=== PATIENT | female | born 1935 | race Caucasian/White ===

== ENCOUNTER 2016-10-18 10:00 | Outpatient (RCR) | payer MEDICARE, OTHER | END 2016-10-19 | disposition home or self-care (01) | LOC: PTY 10:00 | DX: I89.0 Lymphedema, not elsewhere classified (principal) | CPT/HCPCS: 97110; 97140; 97163; 97535; G8978; G8979 ==

== ENCOUNTER 2016-11-15 10:51 | Outpatient (RCR) | payer MEDICARE, OTHER | END 2016-11-18 | disposition home or self-care (01) | LOC: PTY 10:51 | DX: I89.0 Lymphedema, not elsewhere classified (principal) | CPT/HCPCS: 97110; 97140; 97535; G8978; G8979 ==

== ENCOUNTER 2016-12-13 10:00 | Outpatient (RCR) | payer MEDICARE, OTHER | END 2016-12-19 | disposition home or self-care (01) | LOC: PTY 10:00 | DX: I89.0 Lymphedema, not elsewhere classified (principal) | CPT/HCPCS: 97140; 97535; G8979; G8980 ==

== ENCOUNTER 2017-07-03 10:45 | Outpatient (RCR) | payer MEDICARE, OTHER | END 2017-07-19 | disposition home or self-care (01) | LOC: PTY 10:45 | DX: I89.0 Lymphedema, not elsewhere classified (principal) | CPT/HCPCS: 97110; 97140; 97162; G8978; G8979 ==

== ENCOUNTER 2017-07-23 09:00 | Outpatient (RCR) | payer MEDICARE, OTHER | END 2017-08-18 | disposition home or self-care (01) | LOC: PTY 09:00 | DX: I89.0 Lymphedema, not elsewhere classified (principal) | CPT/HCPCS: 97110; 97140; G8978; G8979 ==

== ENCOUNTER 2017-12-21 09:50 | Outpatient (RCR) | payer MEDICARE, OTHER | END 2018-01-18 | disposition home or self-care (01) | LOC: PTY 09:50 | DX: I89.0 Lymphedema, not elsewhere classified (principal) | CPT/HCPCS: 97110; 97140; 97162; 97535; G8978; G8979 ==